=== PATIENT | male | born 1960 | race American Indian/Alaskan Native ===

== ENCOUNTER 2018-09-26 20:30 | Emergency (ER) | payer MEDICAID ==
--- NOTE | 2018-09-26 22:28 | C.PDOC ---
History Of Present Illness 58 year old male is brought to the ED by EMS for evaluation after he was found wandering in [place] prior to arrival. Patient appears drowsy in the ED and is not providing additional history or offering any physical complaints at this time. Time Seen by Provider: 09/26/18 20:34 Chief Complaint (Nursing): Psychiatric Evaluation History Per: Patient, EMS History/Exam Limitations: intoxication Onset/Duration Of Symptoms: Hrs Current Symptoms Are (Timing): Still Present Suicide/Self Injury Attempted (Context): None Involuntary Hold By: None Recent travel outside of the [place]: No Additional History Per: Patient Past Medical History Reviewed: Historical Data, Nursing Documentation, Vital Signs Vital Signs: Last Vital Signs Temp 99.2 F 09/26/18 20:41 Pulse 105 H 09/26/18 20:41 Resp 20 09/26/18 20:41 BP 145/94 H 09/26/18 20:41 Pulse Ox 95 09/26/18 20:41 - Medical History PMH: No Chronic Diseases Surgical History: No Surg Hx Family History: States: Unknown Family Hx - Social History Hx Alcohol Use: No (pt did not respond) Hx Substance Use: No (pt did not respond) Review Of Systems Review Of Systems: ROS cannot be obtained secondary to pt's inabilty to answer questions. Physical Exam - Physical Exam Additional Physical Exam Comments: Constitutional: No acute distress. Drowsy Head: Normocephalic. Atraumatic. Eyes: PERRL. Archus senilis ENT: Moist mucous membranes. Neck: Supple. Cardiovascular: Regular rate. Radial pulse 2+ bilaterally. Chest: No tenderness. Respiratory: mild bibasilar crackles GI: Soft. Nontender. Nondistended. Back: No CVA tenderness. Musculoskeletal: pitting edema to bilateral lower extremities Skin: No rash. tracheostomy scar noted. Neurologic: Arousable to touch and verbal stimuli ED Course And Treatment - Laboratory Results Result Diagrams: 09/26/18 22:49 09/26/18 22:41 O2 Sat by Pulse Oximetry: 95 (on RA) Pulse Ox Interpretation: Normal Medical Decision Making Medical Decision Making: Progress: Bloodwork ordered and reviewed. Patient awoke more to request food. Heather MA called saying patient left from their facility as elopement and confirmed this is patient's baseline. Will accept patient back. Disposition - Disposition Disposition: HOME/ ROUTINE Disposition Time: 00:17 Condition: STABLE Instructions: Dementia (DC) Forms: [employer] ([place]) - Clinical Impression Clinical Impression: Dementia - Scribe Statement The provider has reviewed the documentation as recorded by the Scribe (Malini Salas) Provider Attestation: All medical record entries made by the Scribe were at my direction and personally dictated by me. I have reviewed the chart and agree that the record accurately reflects my personal performance of the history, physical exam, medical decision making, and the department course for this patient. I have also personally directed, reviewed, and agree with the discharge instructions and disposition.
[2018-09-26 22:52] LABS: BASO % 0.5 % (0.0-2.0); EOS % 0.5 % (0.0-4.0); HEMOGLOBIN 13.7 g/dL (12.0-18.0); LYMPH # 2.4 K/uL (1.0-4.3); LYMPH % 36.6 % (20.0-40.0); MEAN CELL VOLUME 91.9 fL (80.0-94.0); MEAN CORPUSCULAR HEMOGLOBIN 28.9 pg (27.0-31.0); MEAN CORPUSCULAR HGB CONC 31.4 g/dL (33.0-37.0); MEAN PLATELET VOLUME 8.1 fL (7.2-11.7); MONO # 1.4 K/uL (0.0-0.8); MONO % 22.2 % (0.0-10.0); NEUT # 2.6 K/uL (1.8-7.0); NEUT % 40.2 % (50.0-75.0); NRBC % 0.1 % (0.0-2.0); PLATELET COUNT 146 K/uL (130-400); RBC 4.73 Mil/uL (4.40-5.90); RED CELL DISTRIBUTION WIDTH 17.9 % (11.5-14.5); WHITE BLOOD COUNT 6.5 K/uL (4.8-10.8)
[2018-09-26 23:02] LABS: ALB/GLOB RATIO 0.8 (1.0-2.1); ALBUMIN 3.3 g/dL (3.5-5.0); ALT/SGPT 31 U/L (21-72); AST/SGOT 50 U/L (17-59); BLOOD UREA NITROGEN 31 mg/dL (9-20); CALCIUM 8.7 mg/dl (8.6-10.4); GFR NON-AFRICAN AMERICAN 57; LIPASE 84 U/L (23-300)
[2018-09-26 23:12] LABS: LYMPHOCYTE 30 % (20-40); MONOCYTE 25 % (0-10); NEUTROPHIL 45 % (50-75); PLATELET ESTIMATE NORMAL (NORMAL); TOTAL CELLS COUNTED 100
[2018-09-26 23:14] LABS: ANISOCYTOSIS SLIGHT; HYPOCHROMIC SLIGHT; POLYCHROMIC SLIGHT
[2018-09-27 01:56] VITALS: BP 132/86; PULSE 68; RESP 18; TEMP 98; O2SAT 99
== END 2018-09-27 01:56 | disposition home or self-care (01) ==
LOC: C.ER 20:30
DX: F03.90 Unspecified dementia, unspecified severity, without behavioral disturbance, psychotic disturbance, mood disturbance, and anxiety (principal)